=== PATIENT | female | born 1980 | race African-American/Black ===

== ENCOUNTER 2018-03-17 17:05 | Emergency (ER) | payer SELFPAY ==
[~2018-03-17] VITALS: Ht 160 cm; Wt 84.4 kg
[~2018-03-17 17:05] MED LIST: ALPR0.25 PO; ALPR0.5T PO; FLUO20CA16 PO; PROP10TA PO; TRAM50TA PO; ZOLP10TA PO; ZOLP5TAB PO
[2018-03-17] MEDS ORDERED: IV NORMAL SALINE 1000ML BAG 1,000 ML IV ONE (17:45)
--- NOTE | 2018-03-17 17:45 | PHYS DOC ---
Past Medical History Past Medical History: Anxiety, Depression, Hypertension, Testicular Torsion Additional Past Medical Histor: Insomnia Past Surgical History: Hysterectomy, Tubal ligation Additional Past Surgical Histo: Right knee surgery. Alcohol Use: None Drug Use: None Adult General Chief Complaint Chief Complaint: SYNCOPE HPI HPI Patient is a 37 year old female with a history of hypertension, anxiety, depression, who presents today complaining of a syncope episode. Patient states she was outside with family at [facility], she states she had some barbecue. She states she was sitting when she passed out and fell hitting her head on the ground. Patient denies any alcohol use/drugs. She is complaining of left knee pain described as sharp and constant. Review of Systems Review of Systems Constitutional: Denies fever or chills [] Eyes: Denies change in visual acuity, redness, or eye pain [] HENT: Denies nasal congestion or sore throat [] Respiratory: Denies cough or shortness of breath [] Cardiovascular: No additional information not addressed in HPI [] GI: Denies abdominal pain, nausea, vomiting, bloody stools or diarrhea [] : Denies dysuria or hematuria [] Musculoskeletal: Reports left knee pain Integument: Denies rash or skin lesions [] Neurologic: Reports syncope, denies focal weakness or sensory changes [] All other systems were reviewed and found to be within normal limits, except as documented in this note. Current Medications Current Medications Current Medications Medications (Trade) Dose Ordered Sig/Andre Start Time Stop Time Status Last Admin Dose Admin Fentanyl Citrate (Fentanyl 2ml Vial) 50 mcg 1X ONCE 03/17/18 20:00 03/17/18 20:01 DC 03/17/18 20:00 50 MCG Sodium Chloride 1,000 ml @ 1,000 mls/hr 1X ONCE 03/17/18 17:45 03/17/18 18:44 DC 03/17/18 18:20 1,000 MLS/HR Allergies Allergies Allergies Coded Allergies Type Severity Reaction Last Updated Verified Sulfa (Sulfonamide Antibiotics) Allergy Intermediate FACIAL HIVES 12/10/15 Yes morphine Allergy Intermediate itching 12/10/15 Yes sulfamethoxazole Allergy Intermediate rash 12/10/15 Yes trimethoprim Allergy Intermediate rash 12/10/15 Yes Physical Exam Physical Exam Constitutional: Well developed, well nourished, no acute distress, non-toxic appearance. [] HENT: Normocephalic, atraumatic, bilateral external ears normal, oropharynx moist, no oral exudates, nose normal. [] Eyes: PERRLA, EOMI, conjunctiva normal, no discharge. [] Neck: Normal range of motion, no tenderness, supple, no stridor. [] Cardiovascular:Heart rate regular rhythm, no murmur [] Lungs & Thorax: Bilateral breath sounds clear to auscultation [] Abdomen: Bowel sounds normal, soft, no tenderness, no masses, no pulsatile masses. [] Skin: Warm, dry, no erythema, no rash. [] Back: No tenderness, no CVA tenderness. [] Extremities: Left knee with superficial bruising. Tenderness on palpation of the anterior left knee. Full range of motion to the left knees, negative Floyd sign and negative Jennifer's sign negative anterior-posterior drawer sign. Neurologic: Alert and oriented X 3, normal motor function, normal sensory function, no focal deficits noted. Cranial nerves II through XII intact Psychologic: Affect normal, judgement normal, mood normal. [] Current Patient Data Vital Signs Vital Signs Date Time Temp Pulse Resp B/P (MAP) Pulse Ox O2 Delivery O2 Flow Rate FiO2 03/17/18 20:00 16 03/17/18 17:15 97.8 92 142/87 (105) 98 Room Air 97.8 Lab Values Laboratory Tests Test 03/17/18 17:17 03/17/18 17:29 Urine Collection Type Unknown Urine Color Yellow Urine Clarity Clear Urine pH 7.0 Urine Specific [place] >=1.030 Urine Protein Negative mg/dL (NEG-TRACE) Urine Glucose (UA) Negative mg/dL (NEG) Urine Ketones (Stick) 15 mg/dL (NEG) Urine Blood Negative (NEG) Urine Nitrite Negative (NEG) Urine Bilirubin Small (NEG) Urine Urobilinogen Dipstick 1.0 mg/dL (0.2 mg/dL) Urine Leukocyte Esterase Small (NEG) Urine RBC 0 /HPF (0-2) Urine WBC Occ /HPF (0-4) Urine Squamous Epithelial Cells Few /LPF Urine Bacteria 0 /HPF (0-FEW) Urine Hyaline Casts Moderate /HPF Urine Mucus Mod /LPF Urine Opiates Screen Neg (NEG) Urine Methadone Screen Neg (NEG) Urine Barbiturates Neg (NEG) Urine Phencyclidine Screen Neg (NEG) Urine Amphetamine/Methamphetamine Neg (NEG) Urine Benzodiazepines Screen Neg (NEG) Urine Cocaine Screen Neg (NEG) Urine Cannabinoids Screen Neg (NEG) Urine Ethyl Alcohol Neg (NEG) White Blood Count 8.5 x10^3/uL (4.0-11.0) Red Blood Count 5.08 x10^6/uL (3.50-5.40) Hemoglobin 9.8 g/dL (12.0-15.5) L Hematocrit 31.2 % (36.0-47.0) L Mean Corpuscular Volume 61 fL (79-100) L Mean Corpuscular Hemoglobin 19 pg (25-35) L Mean Corpuscular Hemoglobin Concent 32 g/dL (31-37) Red Cell Distribution Width 18.1 % (11.5-14.5) H Platelet Count 290 x10^3/uL (140-400) Neutrophils (%) (Auto) 75 % (31-73) H Lymphocytes (%) (Auto) 18 % (24-48) L Monocytes (%) (Auto) 6 % (0-9) Eosinophils (%) (Auto) 1 % (0-3) Basophils (%) (Auto) 1 % (0-3) Neutrophils # (Auto) 6.3 x10^3uL (1.8-7.7) Lymphocytes # (Auto) 1.5 x10^3/uL (1.0-4.8) Monocytes # (Auto) 0.5 x10^3/uL (0.0-1.1) Eosinophils # (Auto) 0.1 x10^3/uL (0.0-0.7) Basophils # (Auto) 0.1 x10^3/uL (0.0-0.2) Platelet Estimate Adequate (ADEQUATE) Hypochromasia Mod Poikilocytosis Slight Anisocytosis Slight Microcytosis Marked Ovalocytes Few Schistocytes Few Sodium Level 136 mmol/L (136-145) Potassium Level 3.5 mmol/L (3.5-5.1) Chloride Level 103 mmol/L (98-107) Carbon Dioxide Level 22 mmol/L (21-32) Anion Gap 11 (6-14) Blood Urea Nitrogen 18 mg/dL (7-20) Creatinine 1.3 mg/dL (0.6-1.0) H Estimated GFR (Cockcroft-Gault) 55.2 BUN/Creatinine Ratio 14 (6-20) Glucose Level 121 mg/dL (70-99) H Calcium Level 8.9 mg/dL (8.5-10.1) Magnesium Level 2.0 mg/dL (1.8-2.4) Total Bilirubin 0.3 mg/dL (0.2-1.0) Aspartate Amino Transferase (AST) 15 U/L (15-37) Alanine Aminotransferase (ALT) 14 U/L (14-59) Alkaline Phosphatase 73 U/L (46-116) Creatine Kinase 153 U/L (26-192) Creatine Kinase MB (Mass) 0.7 ng/mL (0.0-3.6) Creatine Kinase MB Relative Index 0.5 % (0-4) Troponin I Quantitative < 0.017 ng/mL (0.000-0.055) FV-Gnf-F-Type Natriuretic Peptide 67 pg/mL (0-124) Total Protein 8.3 g/dL (6.4-8.2) H Albumin 4.0 g/dL (3.4-5.0) Albumin/Globulin Ratio 0.9 (1.0-1.7) L Lipase 192 U/L (73-393) Thyroid Stimulating Hormone (TSH) 0.821 uIU/mL (0.358-3.74) Ethyl Alcohol Level < 10 mg/dL (0-10) Laboratory Tests 03/17/18 17:29 Laboratory Tests 03/17/18 17:29 EKG EKG [] Radiology/Procedures Radiology/Procedures [] Course & Med Decision Making Course & Med Decision Making Pertinent Labs and Imaging studies reviewed. (See chart for details) This is a 37-year-old female patient presented to the ED today with complaints of syncope episode, falling and left knee pain of left knee pain. Tetanus up-to -date. CT of the head was negative for any acute findings, chest x-ray, left knee x- rays were negative for any acute findings, EKG and cardiac workup is negative, hemoglobin was 9.8 with hematocrit of 31.2. Patient states she has history of anemia. Encouraged patient to take [id number] vitamins or iron tablets. Urine analysis is noted for UTI, specific gravity greater than 1.030. Drug screen is negative. Patient was dehydrated. Given IV fluids in the ED. Feeling better. Will be discharged at home with cephalexin for UTI. Follow-up with PCP in one week. Provided return precautions and discharged in stable condition. Dragon Disclaimer Dragon Disclaimer This electronic medical record was generated, in whole or in part, using a voice recognition dictation system. Departure Departure Impression: Primary Impression: Syncope Additional Impressions: UTI (lower urinary tract infection) Contusion of left knee Anemia Disposition: HOME, SELF-CARE Condition: STABLE Referrals: NO PCP (PCP) follow up with your doctor in 1 week Patient Instructions: Anemia, Nonspecific-Brief, Contusion, [id number], Syncope, Urinary Tract Infection Additional Instructions: You were evaluated in the emergency room after falling/passing out. Your CT scan of the head was negative for any acute findings, your chest x-ray and left knee x-rays were negative for any acute findings. You have chronic anemic. Consider taking iron tablets or vitamins which are [id number] to manage your anemia. Consider pushing fluids you were dehydrated. You also have urinary tract infection. We will put you on antibiotics for 7 days. We encourage you to complete these medications. Follow-up with your own doctor in the course of this week or next week. Scripts Cephalexin (CEPHALEXIN) 500 Mg Tablet 1 TAB PO BID, #14 TAB Prov: SEBASTIAN LOCO APRN 03/17/18 Problem Qualifiers Primary Impression: Syncope Syncope type: unspecified Qualified Codes: R55 - Syncope and collapse Additional Impressions: Contusion of left knee Encounter type: initial encounter Qualified Codes: S80.02XA - Contusion of left knee, initial encounter Anemia Anemia type: unspecified type Qualified Codes: D64.9 - Anemia, unspecified SEBASTIAN LOCO APRN Mar 17, 2018 17:45
[2018-03-17 17:46] LABS: BASO # 0.1 x10^3/uL (0.0-0.2); BASO % 1 % (0-3); EOS # 0.1 x10^3/uL (0.0-0.7); EOS % 1 % (0-3); HEMATOCRIT 31.2 % (36.0-47.0); HEMOGLOBIN 9.8 g/dL (12.0-15.5); LYMPH # 1.5 x10^3/uL (1.0-4.8); LYMPH % 18 % (24-48); MEAN CORPUSCULAR HEMOGLOBIN 19 pg (25-35); MEAN CORPUSCULAR HGB CONC 32 g/dL (31-37); MEAN CORPUSCULAR VOLUME 61 fL (79-100); MONO # 0.5 x10^3/uL (0.0-1.1); MONO % 6 % (0-9); NEUT # 6.3 x10^3uL (1.8-7.7); NEUT % 75 % (31-73); PLATELET COUNT 290 x10^3/uL (140-400); RED BLOOD COUNT 5.08 x10^6/uL (3.50-5.40); RED CELL DISTRIBUTION WIDTH 18.1 % (11.5-14.5); WHITE BLOOD COUNT 8.5 x10^3/uL (4.0-11.0)
[2018-03-17 17:49] LABS: BILIRUBIN,URINE SMALL (NEG); CLARITY,URINE CLEAR; COLOR,URINE YELLOW; NITRITE,URINE NEGATIVE (NEG); PROTEIN,URINE NEGATIVE (NEG-TRACE)
[2018-03-17 17:54] LABS: HYALINE CASTS, URINE MODERATE /HPF; SQUAMOUS EPITHELIAL CELL,UR FEW /LPF
[2018-03-17 17:55] LABS: BACTERIA,URINE 0 /HPF (0-FEW); RBC,URINE 0 /HPF (0-2); WBC,URINE OCC /HPF (0-4)
[2018-03-17 17:56] LABS: BARBITURATES NEG (NEG); BENZODIAZEPINES NEG (NEG); CANNABINOIDS NEG (NEG); COCAINE NEG (NEG); METHADONE NEG (NEG); OPIATES NEG (NEG); PHENCYCLIDINE NEG (NEG)
[2018-03-17 17:57] LABS: AMPHETAMINE/METHAMPHETAMINE NEG (NEG)
[2018-03-17 18:07] LABS: CALCIUM 8.9 mg/dL (8.5-10.1); CREATININE 1.3 mg/dL (0.6-1.0); GFR 55.2; POTASSIUM 3.5 mmol/L (3.5-5.1)
--- NOTE | 2018-03-17 18:09 | RAD ---
CT Head W/O Contrast: History: SYNCOPE AND FALL TODAY DIZZY POST HEAD PAIN NO PREV Comparison: none Axial images were obtained without contrast. The roberson and white matter appears normal and symmetrical for the patients age. There is no mass effect, extraaxial fluid collections or hydrocephalus. There is no gross bleed. There is no focal loss of roberson-white matter distinction to suggest acute ischemia, i.e. stroke. Impression: No acute findings. RS Compliance Statement: One or more of the following individualized dose reduction techniques were utilized for this examination: 1. Automated exposure control 2. Adjustment of the mA and/or kV according to patient size 3. Use of iterative reconstruction technique Electronically signed by: Ean Dotson III, MD (03/17/2018 6:06 PM) [id number]
--- NOTE | 2018-03-17 18:09 | EKG ---
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
[2018-03-17 18:11] LABS: ALBUMIN/GLOBULIN RATIO 0.9 (1.0-1.7); TOTAL BILIRUBIN 0.3 mg/dL (0.2-1.0); TOTAL PROTEIN 8.3 g/dL (6.4-8.2)
--- NOTE | 2018-03-17 18:24 | RAD ---
Left knee 4 views. HISTORY: Left knee laceration, left knee pain 4 views were taken of the left knee. There is no fracture or joint effusion or acute osseous abnormality. IMPRESSION: 1. Negative left knee. Electronically signed by: Nacho Chapman MD (03/17/2018 6:20 PM) [id number]
--- NOTE | 2018-03-17 18:25 | RAD ---
AP chest. HISTORY: Chest pain, patient passed out, syncope AP view was taken of the chest. Lungs are clear. Heart is normal in size without heart failure. There is no effusion. IMPRESSION: 1. No acute chest disease. Electronically signed by: Nacho Chapman MD (03/17/2018 6:21 PM) [id number]
[2018-03-17] MEDS ORDERED: fentaNYL PF VIAL 100 MCG/2 ML VIAL ONE (18:42)
[2018-03-17] MEDS ORDERED: fentaNYL PF VIAL 100 MCG/2 ML VIAL IV ONE ×2 (18:45→20:00)
[2018-03-17 18:51] LABS: ANISOCYTOSIS SLIGHT; MICROCYTOSIS MARKED; PLT ESTIMATE ADEQUATE (ADEQUATE); POIKILOCYTOSIS SLIGHT
[2018-03-17 18:52] LABS: OVALOCYTES FEW; SCHISTOCYTES FEW
[2018-03-17 18:53] LABS: HYPOCHROMIA MOD
[2018-03-17] MEDS ORDERED: CEPH500T PO (20:12)
[2018-03-17 20:15] VITALS: BP 143/80
[2018-03-17] MEDS ORDERED: ACETAMINOPHEN 500 MG TABLET PO ONE (21:00)
== END 2018-03-17 21:02 | disposition home or self-care (01) ==
LOC: ER 17:05
DX: S80.02XA Contusion of left knee, initial encounter (principal); N39.0 Urinary tract infection, site not specified; D64.9 Anemia, unspecified; R55 Syncope and collapse; F41.9 Anxiety disorder, unspecified; F32.9 Major depressive disorder, single episode, unspecified; I10 Essential (primary) hypertension; Z90.710 Acquired absence of both cervix and uterus; Z98.51 Tubal ligation status; Z88.5 Allergy status to narcotic agent; Z88.1 Allergy status to other antibiotic agents; Z88.2 Allergy status to sulfonamides; W19.XXXA Unspecified fall, initial encounter; Y93.89 Activity, other specified; Y92.89 Other specified places as the place of occurrence of the external cause; Y99.8 Other external cause status
CPT/HCPCS: 36415; 70450; 71045; 73564; 80053; 80307; 81001; 82553; 83690; 83735; 83880; 84443; 84484; 85025; 87086; 93005; 96361; 96374; 96376; 99285; G0480; J3010; J7030; G0479